=== PATIENT | female | born 1965 | race Caucasian/White ===

== ENCOUNTER 2017-06-11 11:02 | Emergency (ER) | payer SELFPAY ==
[2017-06-11 11:06] VITALS: BP 131/64; BMI 23.3
--- NOTE | 2017-06-11 11:25 | DR.GENAD ---
HPI - PCP Primary Care Physician: ESTEBAN - HPI Comment HPI Comment: PATIENT HAVE NAUSEA AND CONDITION IS GETTING WORSE. - Complaint/Symptoms Chief Complaint Doctors Comments: GENERALIZE WEAKNESS, SOB, HEADACHE AND CHEST PAIN TIMES ONE DAY. Chief Complaint:: PT. C/O WEAKNESS, DIZZINESS, VOMITING, HEADACHE, SHORTNESS OF BREATH. - Nurses notes reviewed Nurses Notes Review: Yes - Source History Provided: Patient - Mode of Arrival Mode of Arrival: Wheelchair - Timing Onset of Chief Complaint: 06/10/17 Came on: Suddenly - Duration Duration: Constant Duration: Days - Severity Severity: Moderate PMH - PMH Past Medical History: Yes Past Medical History: Anxiety, Arthritis, Asthma, Diabetes, Headaches Past Surgical History: Yes Surgical History: Hysterectomy - Family History History of Family Medical Conditions: Yes Family Medical History: Diabetes Mellitus, Cancer, NE, Hypertension - Social History Does patient currently use any type of tobacco product: Yes Have you used tobacco products in the last 12 months: Yes Type of Tobacco Use: Cigarettes Does any household member use tobacco: No Alcohol Use: None Do you use any recreational Drugs:: No Lives With: Alone Lives Where: Home - infectious screening In the last 2 months have you had wt loss of >10#?: NO Have you had fever, night sweats or hemotysis?: No Have you traveled outside the country in the last 6 months?: No Isolation: Standard ROS - Review of Systems Constitutional: Weakness, Fatigue. negative: Chills, Fever Eyes: negative: Eye Pain, Discharge ENTM: No Symptoms Reported. negative: Ear Pain, Nose Discharge, Nose Congestion Respiratoy: Productive Cough, Short of Breath, Wheezing. negative: Hemoptysis Cardiovascular: No Symptoms Reported Gastrointestinal/Abdominal: No Symptoms Reported Genitourinary: No Symptoms Reported Neurological: No Symptoms Reported Musculoskeletal: No Symptoms Reported Integumentary: No Symptoms Reported Hematologic/Lymphatic: No Symptoms Reported Endocrine: No Symptoms Reported All Other Systems: Reviewed and Negative PE - Vital Signs Vitals: Temperature 97.8 F Pulse Rate 96 Respiratory Rate 24 Blood Pressure [Right Arm] 126/65 Blood Pressure [Left Arm] 127/55 Blood Pressure 131/64 O2 Sat by Pulse Oximetry 95 - General Limitations: No Limitations General Appearance: Alert - Head Head Exam: Normal Inspection - Eyes Eye exam: Normal Appearance - ENT ENT Exam: Normal External Ear Exam External Ear Exam: Normal External Inspection TM/Canal Exam: Bilateral Normal Nose Exam: Normal Nose Exam Mouth Exam: Normal Inspection Throat Exam: Normal Inspection - Neck Neck Exam: Trachea Midline - Chest Chest Inspection: Symmetric Chest Wall Rise - Respiratory Respiratory Exam: Normal Lung Sounds Bilat Respiratory Exam: Bilateral Wheezing, Bilateral Rhonchi, Lower Wheezing, Lower Rhonchi - Cardiovascular Cardiovascular Exam: Regular Rate, Normal Rhythm, Normal Heart Sounds - Abdominal Exam Abdominal Exam: Normal Bowel Sounds, Soft. negative: Tenderness - Extremities Extremities Exam: Normal Inspection - Back Back Exam: Normal Inspection - Neurologic Neurological Exam: Alert, Oriented X3 - Psychiatric Psychiatric Exam: Normal Affect - Skin Skin Exam: Normal Color MDM - Differential Diagnosis Differential Diagnosis: BRONCHITIS, PNEUMONIA, NE, GENERALIZE WEAKNESS Course - Treatment Treatment: SEE ORDERS. - Education/Counseling Education/Counseling: Patient, Education Educated On: Diagnosis, Needs for Follow Up ROR - Labs Reviewed Laboratory Results Reviewed?: Yes Result Diagrams: 06/11/17 11:45 06/11/17 11:45 Laboratory: WBC 10.9 X10^3/uL (3.6-10.0) H 06/11/17 11:45 RBC 5.08 X10^6/uL (3.5-5.4) 06/11/17 11:45 Hgb 16.1 g/dL (12.0-16.0) H 06/11/17 11:45 Hct 46.4 % (36.0-47.0) 06/11/17 11:45 MCV 91.2 fL (80.0-100.0) 06/11/17 11:45 MCH 31.6 pg (27.0-34.0) 06/11/17 11:45 MCHC 34.7 g/dL (33.0-35.0) 06/11/17 11:45 RDW 12.4 % (11.6-16.5) 06/11/17 11:45 Plt Count 252 X10^3/uL (150.0-450.0) 06/11/17 11:45 MPV 8.5 fL (7.4-11.0) 06/11/17 11:45 Neut % 78.0 % (42.0-75.0) H 06/11/17 11:45 Lymph % 16.5 % (21.0-51.0) L 06/11/17 11:45 [place] % 4.7 % (0.0-13.0) 06/11/17 11:45 Eos % 0.1 % (0.9-2.9) L 06/11/17 11:45 Baso % 0.7 % (0.2-1.0) 06/11/17 11:45 Neut # 8.5 x10^3/uL (2.2-4.8) H 06/11/17 11:45 Lymph # 1.8 X10^3/uL (1.3-2.9) 06/11/17 11:45 [place] # 0.5 x10^3/uL (0.3-0.8) 06/11/17 11:45 Eos # 0.0 x10^3/uL (0.0-0.2) 06/11/17 11:45 Baso # 0.1 X10^3/uL (0.0-0.1) 06/11/17 11:45 Absolute Nucleated RBC 0.0 /100WBC 06/11/17 11:45 D-Dimer 361 ng/mL (0-400) 06/11/17 11:45 Sample Site Rra 06/11/17 11:24 ABG pH 7.490 (7.35-7.45) H 06/11/17 11:24 ABG pCO2 32.0 mmHg (35.0-45.0) L 06/11/17 11:24 ABG pO2 76.0 mmHg (80.0-100.0) L 06/11/17 11:24 ABG HCO3 24.4 mmol/L (22-26) 06/11/17 11:24 ABG O2 Saturation 96.0 % (90-100) 06/11/17 11:24 ABG Base Excess 1.6 mmol/L (-2.0-2.0) 06/11/17 11:24 Donnie Test Pos 06/11/17 11:24 A-a Gradient 34.0 mmHg 06/11/17 11:24 FiO2 21.000 06/11/17 11:24 Blood Gas Comments Long well cs 06/11/17 11:24 Sodium 137 mmol/L (136-145) 06/11/17 11:45 Corrected Sodium 139 mmol/L (136-145) 06/11/17 11:45 Potassium 4.1 mmol/L (3.5-5.1) 06/11/17 11:45 Chloride 99 mmol/L (98-107) 06/11/17 11:45 Carbon Dioxide 23.8 mmol/L (21-32) 06/11/17 11:45 BUN 9 mg/dL (7-18) 06/11/17 11:45 Creatinine 0.82 mg/dL (0.55-1.02) 06/11/17 11:45 Est GFR (MDRD) Af Amer > 60 (>60) 06/11/17 11:45 Est GFR (MDRD) Non-Af > 60 (>60) 06/11/17 11:45 Glucose 199 mg/dL (65-99) H 06/11/17 11:45 POC Glucose (mg/dL) 230 mg/dL (65-99) H 06/11/17 11:18 Calcium 9.5 mg/dL (8.5-10.1) 06/11/17 11:45 Corrected Calcium TNP 06/11/17 11:45 Total Bilirubin 0.30 mg/dL (0.2-1.0) 06/11/17 11:45 AST 15 Units/L (15-37) 06/11/17 11:45 ALT 22 Units/L (12-78) 06/11/17 11:45 Alkaline Phosphatase 76 Units/L (46-116) 06/11/17 11:45 Creatine Kinase 53 Units/L (26-192) 06/11/17 11:45 CK-MB (CK-2) 1.0 ng/mL (0-4.0) 06/11/17 11:45 CK/CKMB % Calc 1.9 % (<4) 06/11/17 11:45 Troponin I < 0.02 ng/mL (0-1.5) 06/11/17 11:45 B-Natriuretic Peptide 20.6 pg/mL (0-79) 06/11/17 11:45 Total Protein 8.2 g/dL (6.4-8.2) 06/11/17 11:45 Albumin 3.9 g/dL (3.4-5.0) 06/11/17 11:45 Globulin 4.3 g/dL (2.5-4.5) 06/11/17 11:45 Albumin/Globulin Ratio 0.9 Ratio (1.1-2.1) L 06/11/17 11:45 - XRAY XRAY Interpreted by: Radiologist XRAY Findings: REPORT DISCUSS WITH PATIENT. - EKG Rhythm: NSR (EKG NOTED) - Diagnosis Discharge Problem: Generalized weakness, Bronchitis, COPD exacerbation - Discharge Plan Disposition: HOME, SELF-CARE Condition: Stable Prescriptions: Acetaminophen with Codeine [Tylenol/Codeine #3 300-30 mg] 1 tab PO Q6H PRN #15 tab PRN Reason: Pain Doxycycline Hyclate 100 mg PO BID #20 tablet. Methylprednisolone Dosepak 4Mg [MEDROL DOSEPAK (4 mg tab x 21)] 1 izzy PO ONCE # 1 izzy - Follow ups/Referrals Follow ups/Referrals: Ori Edmond [Primary Care Provider] - 3 days - Instructions Instructions: Chronic Obstructive Pulmonary Disease Exacerbation, [id number] , Acute Bronchitis, [id number] Additional Instructions: RETURN TO ED IF WORSE.
[2017-06-11] MEDS ORDERED: SOLU-Medrol 125 MG VIAL IVP ONE (11:30)
[2017-06-11] MEDS ORDERED: DUONEB 0.5 MG/3 MG NEB ONE (11:30)
[2017-06-11] MEDS ORDERED: DUONEB 0.5 MG/3 MG ONE (11:32)
--- NOTE | 2017-06-11 11:46 | RAD ---
HISTORY: Shortness of breath. Weakness. Study: AP portable chest Comparison: 01/22/2015 Findings: The heart, lungs, mediastinum and bony structures are normal for the patient's age. IMPRESSION: 1. No radiographic evidence of acute cardiopulmonary disease or significant change is noted when com pared to the prior examination. Reported By:
[2017-06-11 11:54] LABS: BASOPHILS # (AUTO) 0.1 X10^3/uL (0.0-0.1); BASOPHILS % (AUTO) 0.7 % (0.2-1.0); EOSINOPHILS % (AUTO) 0.1 % (0.9-2.9); HEMATOCRIT 46.4 % (36.0-47.0); HEMOGLOBIN 16.1 g/dL (12.0-16.0); LYMPHOCYTES # (AUTO) 1.8 X10^3/uL (1.3-2.9); LYMPHOCYTES % (AUTO) 16.5 % (21.0-51.0); MEAN CORPUSCULAR HEMOGLOBIN 31.6 pg (27.0-34.0); MEAN CORPUSCULAR HGB CONC 34.7 g/dL (33.0-35.0); MEAN CORPUSCULAR VOLUME 91.2 fL (80.0-100.0); MEAN PLATELET VOLUME 8.5 fL (7.4-11.0); MONOCYTES # (AUTO) 0.5 x10^3/uL (0.3-0.8); MONOCYTES % (AUTO) 4.7 % (0.0-13.0); NEUTROPHILS # (AUTO) 8.5 x10^3/uL (2.2-4.8); PLATELET COUNT 252 X10^3/uL (150.0-450.0); RED BLOOD COUNT 5.08 X10^6/uL (3.5-5.4); RED CELL DISTRIBUTION WIDTH 12.4 % (11.6-16.5); WHITE BLOOD COUNT 10.9 X10^3/uL (3.6-10.0)
[2017-06-11 11:57] LABS: ABG BASE EXCESS 1.6 mmol/L (-2.0-2.0); ABG HCO3 24.4 mmol/L (22-26)
[2017-06-11 11:58] LABS: ABG ALLEN TEST POS
[2017-06-11] MEDS ORDERED: SOLU-Medrol 125 MG VIAL ONE (12:00)
[2017-06-11 12:08] LABS: BLOOD UREA NITROGEN 9 mg/dL (7-18); CALCIUM 9.5 mg/dL (8.5-10.1); CARBON DIOXIDE 23.8 mmol/L (21-32); CHLORIDE 99 mmol/L (98-107); COR NA(FOR HYPERGLY) 139 mmol/L (136-145); CREATININE 0.82 mg/dL (0.55-1.02); SODIUM 137 mmol/L (136-145); TROPONIN I < 0.02 ng/mL (0-1.5); eGFR BLACK RACES > 60 (>60); eGFR NON BLACK RACES > 60 (>60)
[2017-06-11 12:13] LABS: ALANINE AMINOTRANSFERASE 22 Units/L (12-78); ALBUMIN 3.9 g/dL (3.4-5.0); ALKALINE PHOSPHATASE 76 Units/L (46-116); ASPARTATE AMINO TRANSFERASE 15 Units/L (15-37); CKMB % 1.9 % (<4); CREATINE KINASE 53 Units/L (26-192); TOTAL PROTEIN 8.2 g/dL (6.4-8.2)
[2017-06-11 12:18] LABS: B-TYPE NATRIURETIC PEPTIDE 20.6 pg/mL (0-79)
== END 2017-06-11 13:59 | disposition home or self-care (01) ==
LOC: ER 11:15
DX: J40 Bronchitis, not specified as acute or chronic (principal); J44.1 Chronic obstructive pulmonary disease with (acute) exacerbation; R53.1 Weakness; Z72.0 Tobacco use
CPT/HCPCS: 36415; 36600; 71045; 80053; 82550; 82553; 82803; 83880; 84484; 85025; 85378; 93005; 93010; 94640; 96365; 96374; 96375; 99283; A4222; J2930; J7620